=== PATIENT | female | born 1950 | race African-American/Black ===

== ENCOUNTER 2021-01-08 18:31 | Inpatient (IN) | payer MEDICARE, MEDICAID, SELFPAY ==
--- NOTE | ~2021-01-08 | CT_ITS ---
EXAMINATION: CT abdomen pelvis w con EXAM DATE: 01/11/2021 11:14 INDICATION: Renal cysts, mass. Abnormal ultrasound and noncontrast head CT. TECHNIQUE: Spiral CT of the abdomen and pelvis was performed following intravenous injection of 100 m L Omnipaque 350. Axial, coronal and sagittal images of the abdomen and pelvis were reviewed. The do se-length product (DLP) for this examination was 1558.53 mGy-cm. The exposure was tailored according to patient size (auto mA exposure control), and iterative reconstruction (ASIR) was used as addition al dose reduction technique. Comparison is made to prior examination from 01/10/2021. Correlation also made with ultrasound from 01/10. FINDINGS: There is enhancing right renal mass measuring 3.9 x 3.3 cm along the mid pole anterior kali ex, most likely renal cell cancer. There is also a left renal lobular region along the posterior infe rior aspect of this kidney which demonstrates robust enhancement, suspicious for renal cell cancer. T his region measures about 1 cm, is essentially isodense to the cortex, but did appear slightly hyperd ense to the cortex on the noncontrast study from 01/10. The liver, spleen, adrenal glands and pancreas are unremarkable. There are gallstones within an othe rwise unremarkable gallbladder. No evidence of obstructive biliary disease. Endometrium appears thi ckened, differential diagnosis including hyperplasia, carcinoma. The bladder is unremarkable. There is no retroperitoneal or pelvic lymphadenopathy. There is mild scattered arteriosclerotic disease. Small to moderate-sized umbilical Alfaro's hernia containing portion of transverse colon. Small to moderate-sized umbilical fat-containing hernia. The appendix is not positively visualized. There is no pericecal inflammatory change to suggest appe ndicitis. There is mild scattered colonic diverticulosis. There is no adjacent inflammatory change t o suggest diverticulitis. The stomach and small bowel are unremarkable. There is expected amount of colonic stool. No free intraperitoneal gas. Mild cardiomegaly. The lung bases are unremarkable. Mild to moderate dextroscoliosis and advanced lumbar spondylosis. Large thoracic bridging endplate o steophytes. IMPRESSION: 1. Right renal 3.9 cm mass most likely RCC. 2. Probable left renal 1 cm mass most likely RCC. 3. Endometrial thickening; correlate with recent pelvic sonogram. 4. Abdominal wall hernias, including supra umbilical Alfaro's hernia. 5. Colonic diverticulosis. 6. Cholelithiasis. Reviewed, dictated and finalized at location B.
--- NOTE | ~2021-01-08 | CT_ITS ---
EXAMINATION: CT abdomen pelvis wo con EXAM DATE: 01/10/2021 09:31 INDICATION: Post menopausal bleeding, abdominal pain . TECHNIQUE: Spiral CT of the abdomen and pelvis was performed without contrast. Axial, coronal and s agittal images of the abdomen and pelvis were reviewed. The dose-length product (DLP) for this exami nation was 1524.31 mGy-cm. The exposure was tailored according to patient size (auto mA exposure con trol), and iterative reconstruction (ASIR) was used as additional dose reduction technique. There is no prior study for comparison. FINDINGS: There is right renal 3.7 cm mass, hemorrhagic cyst versus renal cell cancer. There is 8mm l eft renal lesion also soft tissue density and same differential diagnosis. Contrast-enhanced CT or MR I examination abdomen recommended. If patient unable to have contrast, consider kidney ultrasound. Th e liver, spleen, adrenal glands and pancreas are unremarkable. There are gallstones within an otherw ise unremarkable gallbladder. No evidence of obstructive biliary disease. The uterus is unremarka ble. Difficult to evaluate on image from on this modality particularly without contrast. The bladder is unremarkable. There is no retroperitoneal or pelvic lymphadenopathy. Small umbilical fat-containing hernia. Small to moderate sized supraumbilical hernia containing both fat and antimesenteric portion of the transverse colon (Alfaro's hernia). No obstruction. Moderate a ortic arterial sclerosis. There are no findings to suggest appendicitis. The stomach and small bowel are unremarkable. There is expected amount of colonic stool. There is mild to moderate scattered colonic diverticulosis. The re is no adjacent inflammatory change to suggest diverticulitis. No free intraperitoneal gas. Card iomegaly. The lung bases are unremarkable. Severe lumbar disc disease and mild to moderate dextrosc oliosis. Lower thoracic diffuse idiopathic skeletal hyperostosis. Patient has diffuse idiopathic skel etal hyperostosis (DISH). IMPRESSION: 1. Bilateral renal indeterminate masses, hemorrhagic cysts versus renal cell cancers. If patient tien ble to have contrast enhanced CT or MR abdomen then recommend kidney ultrasound. 2. Small to moderate supraumbilical hernia Alfaro's hernia. 3. Colonic diverticulosis. 4. Cholelithiasis. Reviewed, dictated and finalized at location B. IMPRESSION: 1. Bilateral renal indeterminate masses, hemorrhagic cysts versus renal cell c ancers. If patient unable to have contrast enhanced CT or MR abdomen then recom mend kidney ultrasound. 2. Small to moderate supraumbilical hernia Alfaro's hernia. 3. Colonic diverticulosis. 4. Cholelithiasis.
--- NOTE | ~2021-01-08 | US_ITS ---
EXAMINATION: US pelvic complete w TV DATE: 01/09/2021 17:28 INDICATION: Status post menopausal bleeding TECHNIQUE: Multiple transabdominal and endovaginal sonographic images of the pelvis were obtained. COMPARISON: None. FINDINGS: The uterus measures 9.7 x 4.3 x 4.5 cm. The endometrial complex measures 12 mm in thickness. The rig ht and left ovaries were unable to be visualized.. There is no free fluid in the pelvis. IMPRESSION: 1. Thickened endometrial complex measuring 12 mm which could be related to clot, endometrial polyp, s ubmucosal fibroid, endometrial hyperplasia or endometrial carcinoma. Would recommend further evaluati on with hysteroscopy. Reviewed, dictated and finalized at location A. IMPRESSION: 1. Thickened endometrial complex measuring 12 mm which could be related to clot , endometrial polyp, submucosal fibroid, endometrial hyperplasia or endometrial carcinoma. Would recommend further evaluation with hysteroscopy.
--- NOTE | ~2021-01-08 | US_ITS ---
EXAMINATION:US venous doppler LE BI INDICATION:Leg swelling TECHNIQUE: Multiple grayscale, color flow and Doppler images of the right and left lower extremity de ep venous systems were obtained and reviewed. COMPARISON:No prior studies for comparison. FINDINGS: The common femoral, superficial femoral and popliteal veins demonstrate normal respiratory variation, augmentation and compressibility. Color flow is also seen within the posterior tibial, pe roneal, greater saphenous and profunda veins. IMPRESSION: 1: No lower extremity deep venous thrombosis. Reviewed, dictated and finalized at location A.
--- NOTE | ~2021-01-08 | XR_ITS ---
XR chest 2V DATE: 01/08/2021 19:52 INDICATION: Bilateral lower extremity swelling, intermittent shortness of breath for one week TECHNIQUE: AP and lateral views COMPARISON: 04/21/2016 2 view chest FINDINGS: Heart size is within normal range. There is mild aortic unfolding. There is pulmonary vascular redistribution, consistent with pulmonary venous hypertension. No pulmonary consolidation, pleural effusion or pneumothorax. Levoscoliosis and degenerative spurring of the thoracic spine. Osteopenia Synovial osteochondromatosis of right shoulder. Osteoarthritic change at the glenohumeral joints. IMPRESSION: Pulmonary vascular redistribution suggesting pulmonary venous hypertension, congestive ch mauricio Reviewed, dictated and finalized at location A. IMPRESSION: Pulmonary vascular redistribution suggesting pulmonary venous hyper tension, congestive change
--- NOTE | ~2021-01-08 | US_ITS ---
EXAMINATION: US renal BI EXAM DATE: 01/10/2021 13:36 INDICATION: CT abnormality. TECHNIQUE: Multiple grayscale and Doppler images of the kidneys were obtained (by a technologist who performed the scan) and subsequently reviewed. Correlation is made to CT abdomen pelvis earlier same date. FINDINGS: Some limitations from patient's body habitus. Right kidney: There is normal contour and echogenicity. It measures 9.9 x 4.0 x 5.7 centimeters. The re is hypoechoic lesion measuring about 3 cm with some increased through transmission. Appearance is most consistent with a cyst, likely proteinaceous given density on recent CT. There is no hydroneph rosis. Left kidney: There is normal contour and echogenicity. It measures 9.0 x 4.9 x 4.7 centimeters. Ther e is a 1 cm cyst within the left kidney, which is centrally positioned and not the same lesion seen o n CT. There is no hydronephrosis. Bladder unremarkable. IMPRESSION: 1. Renal lesions, could be cyst but difficult to confirm due to limitations. 2. No hydronephrosis. Reviewed, dictated and finalized at location B.
[2021-01-08 19:23] VITALS: BP 167/74; PULSE 93; RESP 18; TEMP 37.2; O2SAT 98
--- NOTE | 2021-01-08 19:24 | ECG_ITS ---
Measurements Intervals [place] Rate: 98 P: 62 NM: 167 QRS: 55 QRSD: 86 T: 188 QT: 349 QTc: 447 Interpretive Statements SINUS RHYTHM POSSIBLE LEFT ATRIAL ENLARGEMENT ST-T WAVE ABNORMALITY IN ANTEROLAT/INF LEADS- CONSIDER ISCHEMIA ABNORMAL ECG Electronically Signed On 01-09-2021 6:00:08 CDT by Sandip Yap D.O.
[2021-01-08 20:14] VITALS: BP 181/93; PULSE 94; RESP 20; O2SAT 97
--- NOTE | 2021-01-08 20:51 | ED.GENADULT ---
HPI - General Adult General Chief complaint: Extremity Problem,Nontraumatic Stated complaint: bilateral le edema Time Seen by Provider: 01/08/21 19:44 History of Present Illness HPI narrative: Patient is a 70-year-old female who presents the emergency department with chief complaint of shortness of breath and lower extremity edema patient reports that she has noticed that her legs have been swelling up for some time and now is getting short of breath to the point that she has to sleep in a recliner patient states whenever she ambulates she gets more short of breath denies any episodes of PND the patient states that also over the last several weeks to months she has started having vaginal bleeding again reports that her onset of menopause was around age 51 and now she has had episodes where she has heavy vaginal bleeding usually for about 1 day at a time patient reports she has an appointment scheduled with [facility] tomorrow to evaluate this patient states that she feels cold all the time even whenever the temperatures are hot outside reports that she has generalized weakness. Patient reports no prior history of anemia or no prior history of heart failure denies chest pain. Related Data Allergies Allergy/AdvReac Type Severity Reaction Status Date / Time No Known Allergies Allergy Unverified 04/21/16 18:37 Review of Systems Review of Systems: A 10 system review of systems was completed on the patient and is negative except for what is stated in the HPI. Nursing and ancillary documentation was reviewed. [facility] Family History Family History Other Family history of heart disease in male family member before age 55 Social History Social History Smoking status: Never smoker Alcohol intake: current Exam Narrative: GENERAL: Well-appearing, well-nourished, and in no acute distress. HEAD: Normocephalic, atraumatic. EYES: PERRLA and EOMI. ENT: Nares clear, no rhinorrhea or epistaxis. Mucous membranes moist. NECK: Supple. CHEST: Clear to auscultation. No respiratory distress. HEART: Regular rate and rhythm. No murmur heard. Normal peripheral pulses. ABDOMEN: Soft, nontender, nondistended, normal active bowel sounds. EXTREMITIES: Normal range of motion. 2+ edema. SKIN: Warm, dry, no rash. NEURO: No focal deficits. Alert and oriented x3. PSYCH: Normal mood and affect. Course Vital Signs Vital signs: Vital Signs Temperature 37.2 C 01/08/21 19:23 Pulse Rate 93 01/08/21 19:23 Respiratory Rate 18 01/08/21 19:23 Blood Pressure 167/74 H 01/08/21 19:23 Pulse Oximetry 98 01/08/21 19:23 Temperature 37.2 C 01/08/21 19:23 Pulse Rate 94 01/08/21 20:14 Respiratory Rate 01/08/21 20:14 Blood Pressure 181/93 H 01/08/21 20:14 Pulse Oximetry 97 01/08/21 20:14 Medical Decision Making Vital Signs Vital Signs: Vital Signs Temperature 37.2 C 01/08/21 19:23 Pulse Rate 93 01/08/21 19:23 Respiratory Rate 18 01/08/21 19:23 Blood Pressure 167/74 H 01/08/21 19:23 Pulse Oximetry 98 01/08/21 19:23 Temperature 37.2 C 01/08/21 19:23 Pulse Rate 94 01/08/21 20:14 Respiratory Rate 01/08/21 20:14 Blood Pressure 181/93 H 01/08/21 20:14 Pulse Oximetry 97 01/08/21 20:14
[2021-01-08 22:05] LABS: Basophils Percent Auto 0.4 % (0.2-1.2); Eosinophils Absolute Auto 0.4 K/mm3 (0-0.3); Eosinophils Percent Auto 3.7 % (0-4.4); Hemoglobin 11.3 g/dL (12.0-15.0); Immature Granulocyte Absolute 0.03 K/mm3 (0.00-0.031); Immature Granulocyte Percent A 0.3 % (0-0.5); Lymphocytes Absolute Auto 1.76 K/mm3 (0.9-3.2); Lymphocytes Percent Auto 17.8 % (18.3-44.2); Mean Corpuscular HGB Conc 31.4 g/dl (32-36); Mean Corpuscular Hemoglobin 30.5 pg (26-34); Mean Platelet Volume 11.4 fl (7.4-10.4); Monocytes Absolute Auto 0.5 K/mm3 (0.1-0.6); Monocytes Percent Auto 5.1 % (2.6-8.5); Neutrophils Absolute Auto 7.2 K/mm3 (1.3-6.7); Neutrophils Percent Auto 72.7 % (45.5-73.1); Platelet Count Result 248 k/mm3 (150-375); Red Blood Count 3.71 M/mm3 (4.2-5.4); Red Cell Distribution Width 15.9 % (11.5-14.5); White Blood Count 9.9 K/mm3 (4.5-10.0)
[2021-01-08 22:15] LABS: INR 1.2; Prothrombin Time 14.7 Seconds (11.1-14.7)
[2021-01-08 22:17] LABS: Partial Thromboplastin Time 27.8 SECONDS (22.3-36.8)
[2021-01-08 22:19] LABS: Alanine Aminotransferase 14 U/L (4-35); Albumin Level 4.1 g/dL (3.5-5.1); Alkaline Phosphatase 114 U/L (38-126); Aspartate Amino Transferase 27 U/L (14-36); Bilirubin,Total 0.3 mg/dL (0.2-1.3)
[2021-01-08 22:20] LABS: Anion Gap 6 mmol/L (8-16); Blood Urea Nitrogen 24 mg/dL (7-17); Carbon Dioxide 30 mmol/L (22-30); Chloride 105 mmol/L (98-107); Estimated CRCL calculation 53 ml/min; Estimated Glomerular Filt Rate 49; Glucose 130 mg/dL (65-110); Potassium 3.3 mmol/L (3.4-5.0); Sodium 141 mmol/L (137-145)
[2021-01-08 22:38] LABS: NT Pro B Type Natriuretic Pept 204 pg/mL (5-100); Troponin I 0.045 ng/mL (0.000-0.034)
[2021-01-08 23:23] VITALS: BP 175/85; PULSE 88; RESP 20; O2SAT 98
--- NOTE | 2021-01-08 23:46 | PM.IMHP ---
H&P: HPI History of Present Illness Date/Time: 01/08/21 23:46 Chief Complaint: Shortness of breath Narrative: This is a 70-year-old female with non significant past medical history that was brought to the emergency room by her granddaughter due to the patient's worsening bilateral lower extremity wound edema and shortness of breath also having vaginal bleed. Patient denies any chest pain ,PND or orthopnea, no syncope or near syncope no nausea, no vomiting, no diarrhea, no abdominal pain, no fevers ,no rigors ,no chills. Most of the history has been obtained by her granddaughter diet is sitting at bedside patient wants to go home. Patient was supposed to be seen by Imaging Aide this week but instead came to the hospital. Preliminary workup was significant for a creatinine now 1.3, and elevated troponin, a chest x-ray shows congestion. Decision has been made to place the patient in observation for further management and evaluation. Review of Systems Review of Systems: Shortness of breath bilateral lower extremity swelling vaginal bleed Constitutional: Constitutional: Denies chills, Denies fatigue, Denies fever(s), Denies lethargy, Denies malaise and Denies weakness Eyes: Eyes: Denies change in vision ENT: Denies dysphagia, Denies nasal congestion, Denies nasal discharge, Denies nasal obstruction and Denies odynophagia Cardiovascular: Cardiovascular: Denies chest pain, Denies irregular heart rhythm, Reports leg edema, Denies radiating jaw, neck or arm pain, Denies palpitations and Reports dyspnea on exertion Respiratory: Respiratory: Denies change in phlegm color, Reports cough and Denies excessive phlegm production Gastrointestinal: Gastrointestinal: Denies abdominal pain, Denies diarrhea, Denies nausea and Denies vomiting Genitourinary: Comments: Vaginal bleed Musculoskeletal: Musculoskeletal: Reports no additional musculoskeletal complaints Integumentary/Breasts: Skin/Breast: Reports system reviewed and no additional complaints, except as docu Neurologic: Reports system reviewed and no additional complaints, except as documented Psychiatric: Psychiatric: Reports no additional psychiatric complaints Endocrine: Endocrine: Reports no additional endocrine complaints Hematologic/Lymphatic: Hematologic/Lymphatic: Reports no additional hematologic/lymphatic complaints Allergic/Immunologic: Allergic/Immunologic: Reports no additional allergic/immunologic complaints [facility] Family History Family History Other Family history of heart disease in male family member before age 55 Social History Social History Smoking status: Never smoker Alcohol intake: current Meds Home Medications and Allergies Home Medications Medication Instructions Recorded Confirmed Type No Home Medications 01/09/21 01/09/21 History Allergies Allergy/AdvReac Type Severity Reaction Status Date / Time No Known Allergies Allergy Unverified 04/21/16 18:37 Vital Signs Vital Signs - 24 hr 01/08/21 19:23 01/08/21 20:14 01/08/21 23:23 Temperature 98.9 F Pulse Rate 93 94 88 Respiratory Rate 18 20 20 Blood Pressure 167/74 H 181/93 H 175/85 H Pulse Oximetry 98 97 98 Exam Narrative: Patient is sitting in wheelchair Const: General: cooperative, comfortable, no acute distress, well developed, alert, awake and other (Well-appearing) Nutritional Appearance: average body habitus and obese morbidly obese Orientation/consciousness: patient oriented x3 HENMT: Head: normal to inspection, normocephalic and atraumatic Ears: hearing grossly normal bilaterally General nose exam: Normal external nose present Face and sinus: normal facial exam Mouth: Yes Normal oral and palatal mucosa present Eyes: General: appearance normal, both eyes and all related structures Alignment and Position: alignment normal Sclera: sclerae normal
[2021-01-08] MEDS: FUROSEMIDE INJ 40 MG/4 ML VIAL 20 MG IV PUSH (23:57)
[2021-01-09] VITALS (12 sets, daily range): BP systolic 145–166; BP diastolic 76–110; PULSE 68–95; RESP 12–20; TEMP 36.1–37.1; O2SAT 97–100; BMI 46.8
--- NOTE | 2021-01-09 01:35 | ADMGEN ---
This patient, Roxanne Garcia, was admitted to IMU Room 210-01. Patient/family oriented to hospital policies and general routines including ID bracelet, bed and alarms, visiting hours, pain management, procedures, bathroom and other care routines, personal items, smoking policy, room service/diet, and visiting hours. Information on how to activate the Rapid Response Team has been discussed. Patient/Family are encouraged to report perceived risks to care and to ask questions if they do not understand what they are told or what they should do.
--- NOTE | 2021-01-09 03:19 | PC.NURSE ---
Dr. Alberto Notified of patient receiving lasix in ER and potassium is 3.3 with no replacement. Give 40potassium PO
[2021-01-09 03:45] LABS: Troponin I 0.042 ng/mL (0.000-0.034)
[2021-01-09 03:52] LABS: Add Urine Microscopic? YES; Appearance Urine Clear (Clear); Bilirubin Urine Negative (Negative); Blood Urine 2+ (Negative); Color Urine Colorless (Yellow); Glucose Urine UA Negative (Negative); Ketones Urine Negative (Negative); Leukocyte Esterase Ur Negative LEU/UL (Negative); Mucus Urine Rare /lpf; Nitrate Urine Negative (Negative); Protein Urine Negative (Negative); Specific Grav Ur 1.008 (1.001-1.035); Squamous Epithelial Cell Urine Rare /hpf (Few); Urobilinogen Urine Negative mg/dL (<2.0); WBC Urine 0-3 /hpf
[2021-01-09] MEDS: POTASSIUM CHLORIDE 20 MEQ TABLET 40 MEQ PO ×2 (03:59→09:32)
--- NOTE | 2021-01-09 06:00 | ECHO_ITS ---
Patient Info Name: Roxanne Garcia Age: 70 years : 1950 Gender: Female Ht: 67 in Wt: 300 lbs BSA: 2.61 m2 HR: 91 bpm BP: 149 / 82 mmHg Heart Rhythm: Sinus Rhythm Exam Date: 01/09/2021 8:35 AM Exam Location: [facility] Patient Status: Outpatient Admit Date: 01/08/2021 Staff Ordering Physician: Darek Paez MD Nutrition Director: Hossein Robertson, KODI, RT Attending Provider: Cindy Rain PA-C Referring Physician: Jeannine PEARSON; Exam Type: CA echo doppler color flow Study Info Indications R60.0 - Localized edema Complete two-dimensional, color flow and Doppler transthoracic echocardiogram is performed. Summary 1. Complete two-dimensional, color flow and Doppler transthoracic echocardiogram is performed. 2. Technically difficult study with limited views. Regional wall motion assessment limited due to poor endomyocardial border definition. 3. Left ventricular systolic function is normal, estimated at 65-70%. 4. There is mildly increased left ventricular wall thickness. 5. The left ventricular diastolic function is grade I diastolic dysfunction. 6. Left atrial chamber dimension is upper limits of normal. 7. Right atrial chamber dimension is normal. 8. There is no aortic valve stenosis. 9. Unable to estimate PA systolic pressure due to poor spectral resolution of tricuspid regurgitant jet velocity. 10. There is trace tricuspid valve regurgitation. 11. There is small pericardial effusion. Left Ventricle Left ventricular chamber dimension is normal. Left ventricular systolic function is normal, estimated at 65-70%. There is mildly increased left ventricular wall thickness. The left ventricular diastolic function is grade I diastolic dysfunction. Technically difficult study with limited views. Regional wall motion assessment limited due to poor endomyocardial border definition. Right Ventricle Right ventricular chamber dimension is normal. Right ventricular systolic function is normal. Left Atria Left atrial chamber dimension is upper limits of normal. Right Atria Right atrial chamber dimension is normal. Aortic Valve The aortic valve is not well visualized. There is mild aortic valve sclerosis. There is no aortic valve stenosis. There is no aortic valve regurgitation. Pulmonic Valve The pulmonic valve is not well visualized. Mitral Valve The mitral valve has not well visualized. There is trace mitral valve regurgitation. The mitral valve annulus is mildly calcified. Tricuspid Valve The tricuspid valve leaflets are not well visualized. There is trace tricuspid valve regurgitation. Unable to estimate PA systolic pressure due to poor spectral resolution of tricuspid regurgitant jet velocity. Pericardium/Pleural The pericardium appears normal. There is small pericardial effusion. Inferior Vena Cava Normal inferior vena cava with <50% collapse upon inspiration consistent with elevated right atrial pressure, 10 mmHg. Aorta The aortic root size at the sinus of Valsalva is normal. There is mild aortic atherosclerosis. Left Ventricular Outflow Tract Name Value Normal LVOT 2D LVOT Diameter 2.0 cm LVOT Doppler
[2021-01-09 07:33] LABS: Magnesium 1.8 mg/dL (1.6-2.3); Potassium 3.3 mmol/L (3.4-5.0)
[2021-01-09] MEDS: FUROSEMIDE INJ 40 MG/4 ML VIAL 20 MG IV PUSH ×2 (09:32→23:00)
--- NOTE | 2021-01-09 09:49 | ECG_ITS ---
Measurements Intervals [place] Rate: 88 P: 49 OR: 153 QRS: 35 QRSD: 85 T: -11 QT: 369 QTc: 449 Interpretive Statements SINUS RHYTHM BORDERLINE T WAVE ABNORMALITY- INFERIOR LEADS BASELINE ARTIFACT- I, II, AVR BORDERLINE ECG Electronically Signed On 01-09-2021 13:57:31 CDT by Sandip Yap D.O.
--- NOTE | 2021-01-09 10:02 | PM.CNCAR ---
Assessment and Plan Assessment and plan (1) Elevated troponin I level: Code(s): R77.8 - Other specified abnormalities of plasma proteins Status: Acute Assessment and Plan: Type 2 infarction in setting of renal insufficiency, uncontrolled hypertension, possible mild but without anginal symptoms and flat curve not consistent with the acute coronary syndrome and/or plaque rupture. Abnormal EKG cannot exclude underlying CAD, however,. 2D echocardiogram pending. Recommendations after review. Check TSH, hemoglobin A1c, repeat 12 lead EKG. Discussed many options with the patient with regards to etiology renal insufficiency, edema and shortness of breath. We discussed the significant LV dysfunction, valve pathology or wall motion abnormality identified on echocardiogram further ischemic workup indicated at the appropriate time. Patient verbalized understanding. DVT prophylaxis Check lipid panel Telemetry for now Apnea link to screen for sleep apnea Aspirin 81 mg daily Recommendations to follow. (2) Congestive heart failure: Code(s): I50.9 - Heart failure, unspecified Status: Acute Assessment and Plan: Presentation suggests CHF with progressive exertional dyspnea, lower extremity edema when difficulty sleeping suggestive but not corroborated by the patient of orthopnea but within minimal elevation in BNP as well as minimal pulmonary vascular congestion on chest x-ray. Continue IV Lasix, accurate input and output, daily weight, low-sodium diet. Check TSH Apnea link (3) Acute renal insufficiency: Code(s): N28.9 - Disorder of kidney and ureter, unspecified Status: Acute Assessment and Plan: Creatinine 0.7 in 2018. Or recent chronicity at this time unknown. Monitor tolerance with diuretic therapy. Replete electrolytes, she remains hypokalemic. (4) Hypertension: Code(s): I10 - Essential (primary) hypertension Status: Acute Assessment and Plan: BP poorly controlled. ARB as renal function tolerates. We discussed if sleep apnea present can contribute to difficulty managing blood pressure, increased exacerbation risk for CHF as well as multiple other complications not to mention significant impact in quality of life.. (5) Morbid obesity with BMI of 45.0-49.9, adult: Code(s): E66.01 - Morbid (severe) obesity due to excess calories; Z68.42 - Body mass index [BMI] 45.0-49.9, adult Status: Acute Assessment and Plan: Lifestyle modification, exercise, reduction in caloric intake counseling performed. Check apnea link given symptoms highly suggestive of LUIS F. (6) Vaginal bleeding: Code(s): N93.9 - Abnormal uterine and vaginal bleeding, unspecified Status: Acute Assessment and Plan: Per primary service. History of Present Illness History of Present Illness Consult date/time: Date of service: 01/09/21 10:02 Cardiology consultation at the request of Dr. Alberto of the [facility] service for opinion regarding elevated troponin Requesting physician: Flori Alberto MD Consult reason: shortness of breath and Other (Elevated troponin) Reason For Visit: Shortness of Breath, Peripheral Edema Narrative: Patient is a 70-year-old AAF with past medical history significant for hypertension who was brought in by her granddaughter with complaints of worsening lower extremity edema and exertional dyspnea. Patient states her edema was worse eaten leg for the past week and relates 2 weeks of progressive exertional dyspnea. She denies chest pain, dizziness or lightheadedness. No palpitations, fevers, chills or recent sick contacts. She denies any dysuria or hematuria. She states she is feeling better and her swelling has improved. She admits that she does not see her primary care doctor regularly unless she is made to come in to get refills on her medications which she states she takes faithfully. She indicates she takes triamterene with another
[2021-01-09 10:15] LABS: Troponin I 0.044 ng/mL (0.000-0.034)
--- NOTE | 2021-01-09 12:58 | PM.IMPN ---
Progress Note: A&P Assessment and Plan (1) Congestive heart failure: Code(s): I50.9 - Heart failure, unspecified Status: Acute Assessment and Plan: Suspect CHF with her lower extremity edema and dyspnea on exertion but BMP not as elevated as one would expect -troponins flat, no chest pain. No signs of ACS -echo pending -continue Lasix 20 mg IV push twice a day -agree with apnea link overnight -differential diagnosis for leg swelling include DVT although less likely since the patient is somewhat active and her legs are swollen bilaterally. No history of clot. There is no protein noted in her UA, nephropathy not suspected. (2) Elevated troponin I level: Code(s): R77.8 - Other specified abnormalities of plasma proteins Status: Acute Assessment and Plan: As above -echo pending (3) Hypertension: Code(s): I10 - Essential (primary) hypertension Status: Acute Assessment and Plan: Last blood pressure 164/76 -she does not take anything at home for this -will await echo results before starting antihypertensives. If no CHF consider starting amlodipine. -for now continue hydralazine as needed (4) Morbid obesity with BMI of 45.0-49.9, adult: Code(s): E66.01 - Morbid (severe) obesity due to excess calories; Z68.42 - Body mass index [BMI] 45.0-49.9, adult Status: Acute Assessment and Plan: Chronic, encourage healthy lifestyles (5) Vaginal bleeding: Code(s): N93.9 - Abnormal uterine and vaginal bleeding, unspecified Status: Acute Assessment and Plan: Will order transvaginal ultrasound. Patient did have an appointment outpatient today. She says this happens once a year and is very minimal. Still concerning since she is postmenopausal. (6) Acute renal insufficiency: Code(s): N28.9 - Disorder of kidney and ureter, unspecified Status: Acute Assessment and Plan: Creatinine slightly elevated 1.3. Will monitor with daily labs especially since she is on Lasix. No signs of infection on UA. Could be due to untreated hypertension. Labs back in 2012 shows a normal creatinine Time Spent With Patient Time with patient: 25 - 35 minutes Subjective Date/time seen: 01/09/21 12:58 Interval history: Pt is a 70-year-old female here for lower extremity swelling. Patient was seen today and states the swelling is a bit better. She states that this just happened within the last week but her dyspnea on exertion has been going on since the beginning of this year. She has no orthopnea or problems breathing at rest. No chest pain at this time. She states that she had a little bit of postmenopausal bleeding yesterday. She said it was a bright red blood but not very much. She says she has this about once a year. She had an appointment today to see an OBGYN about this. It has cleared up. No history of blood clots or kidney disease. Review of Systems Review of Systems: All systems reviewed & are unremarkable except as noted in HPI and below Exam Narrative: General: Well developed well nourished patient in NAD HEENT: normocephalic Neck: supple Neuro: Alert and oriented x4 CV:RRR. Telemetry without abnormal reviews Resp:CTA, slightly decreased breath sounds throughout Abd: Soft, non distended. No pain to palpation. Positive bowel sounds Extremities: 2+ pitting edema up to the knees bilaterally. No erythema or warmth. Sensation intact no pain. Objective Data Vital Signs Vital Signs: Vital Signs - 24 hr 01/08/21 19:23 01/08/21 20:14 01/08/21 23:23 Temperature 98.9 F Pulse Rate 93 94 88 Respiratory Rate 18 20 20 Blood Pressure 167/74 H 181/93 H 175/85 H Pulse Oximetry 98 97 98 01/09/21 01:35 01/09/21 03:37 01/09/21 06:00 Temperature 98.8 F 98.7 F Pulse Rate 93 84 76 Respiratory Rate 20 20 Blood Pressure 162/101 H 149/82 H Pulse Oximetry 100 97 01/09/21 08:00 01/09/21 10:00 Tem
--- NOTE | 2021-01-09 15:17 | WPDCN ---
Assessment and Plan Assessment and plan (1) Postmenopausal bleeding: Code(s): N95.0 - Postmenopausal bleeding Status: Acute Assessment and Plan: Check pelvic ultrasound (already ordered). I advised her if the uterine lining is thickened, she will need sampling of the endometrial cavity either in office or in the OR (as outpatient). We discussed that vaginal bleeding after menopause is not normal and should be reported to her propellant charge zone assembler. She had visit scheduled with a propellant charge zone assembler today but does not remember his/her name. HPI Data of Consult Date/Time: 01/09/21 15:17 Requesting Physician: Cindy Rain PA-C Primary Care Provider: UNKNOWN,DOCTOR Consult Narrative Narrative: Roxanne Garcia is a 70 year old female postmenopausal who had light vaginal bleeding yesterday and cramping similar to menstrual cramps. Bleeding has stopped. She reports having had vaginal bleeding about a year ago but denies having endometrial biopsy or D&C. She is not sexually active. No pelvic or abdominal pain today. No h/o abnormal paps Review of Systems Review of Systems: All systems reviewed & are unremarkable except as noted in HPI and below PMFSH Past Medical History Medical History Hypertension Morbid obesity with BMI of 45.0-49.9, adult Family History Family History Other Family history of heart disease in male family member before age 55 Social History Social History Smoking status: Never smoker Alcohol intake: never Substance use: never Spiritual care concerns: No Meds Home Medications and Allergies Home Medications Medication Instructions Recorded Confirmed Type No Home Medications 01/09/21 01/09/21 History Allergies Allergy/AdvReac Type Severity Reaction Status Date / Time No Known Allergies Allergy Unverified 04/21/16 18:37 Vital Signs Vital Signs - 24 hr 01/08/21 19:23 01/08/21 20:14 01/08/21 23:23 Temperature 37.2 C Pulse Rate 93 94 88 Respiratory Rate 18 20 20 Blood Pressure 167/74 H 181/93 H 175/85 H Pulse Oximetry 98 97 98 01/09/21 01:35 01/09/21 03:37 01/09/21 06:00 Temperature 37.1 C 37.1 C Pulse Rate 93 84 76 Respiratory Rate 20 20 Blood Pressure 162/101 H 149/82 H Pulse Oximetry 100 97 01/09/21 08:00 01/09/21 10:00 01/09/21 12:00 Temperature 36.6 C 36.9 C Pulse Rate 78 89 88 Respiratory Rate 18 18 Blood Pressure 164/76 H 159/110 H Pulse Oximetry 99 98 Exam Const: General: cooperative, no acute distress, alert and awake Resp: Auscultation: clear to auscultation bilaterally Cardio: Rate: regular rate Rhythm: regular rhythm GI: Inspection: non-distended GI Palp: Yes Soft to palpation and No Tenderness to palpation present (GI) : General: Yes deferred Psych: Mental Status: mental status grossly normal Results Labs CBC & Chem 7: 01/08/21 20:20 01/09/21 05:45 Labs: Short CBC 01/08/21 Range/Units 20:20 WBC 9.9 (4.5-10.0) K/mm3 Hgb 11.3 L (12.0-15.0) g/dL Hct 36.0 L (37.0-47.0) % Plt Count 248 (150-375) k/mm3 [facility] 01/08/21 01/09/21 20:20 05:45 Sodium 141 Potassium 3.3 L 3.3 L Chloride 105 Carbon Dioxide 30 BUN 24 H Creatinine 1.30 H Glucose 130 H Calcium 9.0 Cardiac Enzymes 01/08/21 01/09/21 01/09/21 Range/Units 20:20 02:46 05:48 Troponin I 0.045 H* 0.042 H* 0.050 H* (0.000-0.034) ng/mL 01/09/21 Range/Units 09:29 Troponin I 0.044 H* (0.000-0.034) ng/mL Liver Function 01/08/21 Range/Units 20:20 Total Bilirubin 0.3 (0.2-1.3) mg/dL Direct Bilirubin 0.0 (0-0.3) mg/dL AST 27 (14-36) U/L ALT 14 (4-35) U/L Alkaline Phosphatase 114 (38-126) U/L Albumin 4.1 (3.5-5.1) g/dL Urine 01/09/21 Range/Units
--- NOTE | 2021-01-09 17:33 | PC.NURSE ---
This patient, Roxanne Garcia, was transferred to [facility] on 01/09/21 at 1720. Personal belongings sent with patient. Report given to Salma HE. Appropriate documentation sent with patient.
--- NOTE | 2021-01-09 17:57 | PC.NURSE ---
Arrived from [facility] at 1720, no c/o
[2021-01-09] MEDS: hydrALAZINE HCL 20 MG/ML VIAL 10 MG IV PUSH (23:43)
[2021-01-10] VITALS (7 sets, daily range): BP systolic 93–151; BP diastolic 54–92; PULSE 70–100; RESP 18–20; TEMP 36.3–36.7; O2SAT 98–100
[2021-01-10] MEDS: ACETAMINOPHEN 500 MG TABLET 1000 MG PO (04:27)
[2021-01-10 06:23] LABS: Hematocrit 32.1 % (37.0-47.0); Hemoglobin 10.5 g/dL (12.0-15.0); Mean Corpuscular HGB Conc 32.7 g/dl (32-36); Mean Corpuscular Hemoglobin 30.1 pg (26-34); Mean Platelet Volume 11.4 fl (7.4-10.4); Platelet Count Result 227 k/mm3 (150-375); Red Blood Count 3.49 M/mm3 (4.2-5.4); Red Cell Distribution Width 15.2 % (11.5-14.5); White Blood Count 8.6 K/mm3 (4.5-10.0)
[2021-01-10 06:31] LABS: Anion Gap 8 mmol/L (8-16); Blood Urea Nitrogen 27 mg/dL (7-17); Calcium 8.8 mg/dL (8.4-10.2); Carbon Dioxide 30 mmol/L (22-30); Chloride 102 mmol/L (98-107); Cholesterol 195 mg/dL (0-200); Estimated CRCL calculation 58 ml/min; Estimated Glomerular Filt Rate 54; Glucose 123 mg/dL (65-110); HDL Direct 34 mg/dL; Magnesium 1.8 mg/dL (1.6-2.3); Potassium 3.5 mmol/L (3.4-5.0); Sodium 140 mmol/L (137-145); Triglycerides 91 mg/dL (<150)
[2021-01-10 06:42] LABS: LDL Cholesterol Direct 123 mg/dL
[2021-01-10] MEDS: POTASSIUM CHLORIDE 20 MEQ TABLET PO (09:00)
[2021-01-10] MEDS: amLODIPine BESYLATE 5 MG TABLET PO (09:00)
[2021-01-10] MEDS: ASPIRIN 81 MG ENTERIC TABLET PO (09:01)
[2021-01-10] MEDS: FUROSEMIDE INJ 40 MG/4 ML VIAL 20 MG IV PUSH ×2 (09:01→22:36)
--- NOTE | 2021-01-10 11:14 | PM.IMPN ---
Progress Note: A&P Assessment and Plan (1) Congestive heart failure: Code(s): I50.9 - Heart failure, unspecified Status: Acute Assessment and Plan: Acute diastolic CHF -troponins flat, no chest pain. No signs of ACS -echo noted -continue Lasix 20 mg IV push twice a day, continue with that -untreated sleep apnea is also in etiology. Her lower extremity swelling is likely multifactorial and includes untreated sleep apnea and diastolic heart failure. She plans follow-up with her primary care physician for sleep apnea study -There is no protein noted in her UA, nephropathy not suspected. Ultrasound lower extremity showed no DVTs. No signs of inferior vena cava compression on CT. (2) Elevated troponin I level: Code(s): R77.8 - Other specified abnormalities of plasma proteins Status: Acute Assessment and Plan: As above (3) Hypertension: Code(s): I10 - Essential (primary) hypertension Status: Acute Assessment and Plan: Last blood pressure 151/92 -she does not take anything at home for this -Norvasc as these do improve blood pressures in Americans more efficacious sleep. She would also likely benefit from Edgar/Arb to prevent remodeling but will defer to Cardiology (4) Morbid obesity with BMI of 45.0-49.9, adult: Code(s): E66.01 - Morbid (severe) obesity due to excess calories; Z68.42 - Body mass index [BMI] 45.0-49.9, adult Status: Acute Assessment and Plan: Chronic, encourage healthy lifestyles (5) Vaginal bleeding: Code(s): N93.9 - Abnormal uterine and vaginal bleeding, unspecified Status: Acute Assessment and Plan: Transvaginal ultrasound shows a suspicious abnormality and she should get a biopsy outpatient (6) Acute renal insufficiency: Code(s): N28.9 - Disorder of kidney and ureter, unspecified Status: Acute Assessment and Plan: Creatinine slightly elevated 1.2 Will monitor with daily labs especially since she is on Lasix. No signs of infection on UA. Could be due to untreated hypertension. Labs back in 2012 shows a normal creatinine (7) Renal mass: Code(s): N28.89 - Other specified disorders of kidney and ureter Status: Acute Assessment and Plan: CT shows bilateral renal masses which could be hemorrhagic cyst or renal cell cancers. I spoke to the patient about further workup and she does not really want to do the MRI or CT with contrast unless she really has 2. She would like to try the ultrasound 1st. This has been ordered (8) Suspected sleep apnea: Code(s): R29.818 - Other symptoms and signs involving the nervous system Status: Acute Assessment and Plan: Will need official sleep study outpatient, could be contributing to her lower extremity edema Subjective Date/time seen: 01/10/21 11:14 Interval history: Pt is a 70-year-old female here for lower extremity swelling. Patient was seen today and states her swelling is little bit better. She has no further complaints. She states she has no history of sleep apnea and has never been tested. I spoke with her about her abnormality on the abdominal pelvis CT. She said she could agreed to an MRI of the absolutely had to but would like to try the ultrasound 1st. She has never had contrast and she does not do well with in closed spaces. I spoke with her about her blood pressure in the plan of care for that. She has never been on amlodipine. Exam Narrative: General: Well developed well nourished patient in NAD HEENT: normocephalic Neck: supple Neuro: Alert and oriented x4 CV:RRR. Telemetry without abnormal reviews Resp:CTA, slightly decreased breath sounds throughout Abd: Soft, non distended. No pain to palpation. Positive bowel sounds Extremities: 1+ pitting edema up to the mid crandall bilaterally--improved. No erythema or warmth. Sensation intact no pain. Objecti
--- NOTE | 2021-01-10 14:06 | PM.PNCARD ---
Progress Note: A&P Assessment and Plan (1) Elevated troponin I level: Code(s): R77.8 - Other specified abnormalities of plasma proteins Status: Acute Assessment and Plan: Type 2 infarction in setting of renal insufficiency, uncontrolled hypertension, possible mild but without anginal symptoms and flat curve not consistent with the acute coronary syndrome and/or plaque rupture. Abnormal EKG at presentation cannot exclude underlying CAD. Echo technically difficult but preserved LV systolic function without clearly identifiable motion abnormalities or significant valve pathology. Mild LVH with grade 1 diastolic dysfunction appreciated. BP control, treatment of LUIS F, diet/lifestyle avoidance of NSAID therapy counseling performed. Losartan would be preferable for blood pressure control if she still requires. Discontinued IV hydralazine. Continue Lasix, transition to oral DVT prophylaxis Telemetry stable. Apnea link suggests severe LUIS F AHI 38. Outpatient sleep study strongly advised. Aspirin 81 mg daily Will schedule for outpatient Lexiscan nuclear stress test to assess for myocardial ischemia. Offered inpatient ischemic evaluation prior to discharge which patient respectfully declined. Patient is not reporting anginal symptoms. Repeat 12 lead EKG much improved. Patient verbalized understanding of the record recommendations and agreed to comply with plan of care. Recommend initiation of atorvastatin 20 mg at bedtime. (2) Congestive heart failure: Code(s): I50.9 - Heart failure, unspecified Status: Acute Assessment and Plan: Presentation suggests CHF with progressive exertional dyspnea, lower extremity edema when difficulty sleeping suggestive but not corroborated by the patient of orthopnea but within minimal elevation in BNP as well as minimal pulmonary vascular congestion on chest x-ray. Transition to oral Lasix in a.m. as tolerated. Combination of uncontrolled hypertension, untreated significant LUIS F. Counseled on risks associated with NSAID use including hypertension, CHF. She understands and agrees. -1.8L (3) Acute renal insufficiency: Code(s): N28.9 - Disorder of kidney and ureter, unspecified Status: Acute Assessment and Plan: Creatinine stable 1.2, BUN slightly elevated 27. Monitor electrolytes, supplement 20 mEq potassium chloride daily. Check electrolytes in a.m.. Renal mass workup per primary service. Ultrasound suggestive of cyst. (4) Hypertension: Code(s): I10 - Essential (primary) hypertension Status: Acute Assessment and Plan: BP marginally controlled improved on amlodipine. Hypotensive after IV hydralazine so I discontinued this. Again, ARB as renal function tolerates. . (5) Morbid obesity with BMI of 45.0-49.9, adult: Code(s): E66.01 - Morbid (severe) obesity due to excess calories; Z68.42 - Body mass index [BMI] 45.0-49.9, adult Status: Acute Assessment and Plan: Lifestyle modification, exercise, reduction in caloric intake counseling performed. (6) Vaginal bleeding: Code(s): N93.9 - Abnormal uterine and vaginal bleeding, unspecified Status: Acute Assessment and Plan: Per primary service. Ob consult noted. Subjective Date/time seen: Date of service: 01/10/21 14:07 Follow-up for elevated troponin, shortness of breath lower extremity edema She states she feels better overall. She remains tired as she is not sleeping well. Denies chest pain or significant shortness of breath. States she feels her edema is improving. No dizziness or lightheadedness. No other complaints. Review of Systems Review of Systems: All systems reviewed & are unremarkable except as noted in HPI and below Constitutional: Constitutional: Reports as per HPI, Reports no additional constitutional complaints and Reports fatigue Eyes: Eyes: Reports as per HPI and Reports no additional eye complaints ENT: Reports
[2021-01-11] VITALS (7 sets, daily range): BP systolic 130–150; BP diastolic 68–72; PULSE 69–130; RESP 16–18; TEMP 36.8–36.9; O2SAT 98–99
[2021-01-11] MEDS: ACETAMINOPHEN 325 MG TABLET 650 MG PO ×2 (04:56→15:52)
[2021-01-11 06:14] LABS: Anion Gap 10 mmol/L (8-16); Blood Urea Nitrogen 28 mg/dL (7-17); Carbon Dioxide 29 mmol/L (22-30); Chloride 100 mmol/L (98-107); Estimated CRCL calculation 63 ml/min; Estimated Glomerular Filt Rate 60; Glucose 169 mg/dL (65-110); Potassium 3.4 mmol/L (3.4-5.0); Sodium 139 mmol/L (137-145)
[2021-01-11] MEDS: amLODIPine BESYLATE 5 MG TABLET PO (08:46)
[2021-01-11] MEDS: ASPIRIN 81 MG ENTERIC TABLET PO (08:46)
[2021-01-11] MEDS: ATORVASTATIN 20 MG TABLET PO (08:46)
[2021-01-11] MEDS: FUROSEMIDE 40 MG TABLET PO (08:46)
[2021-01-11] MEDS: POTASSIUM CHLORIDE 20 MEQ TABLET 40 MEQ PO (08:52)
--- NOTE | 2021-01-11 09:35 | PM.PNCARD ---
Progress Note: A&P Assessment and Plan (1) Elevated troponin I level: Code(s): R77.8 - Other specified abnormalities of plasma proteins Status: Acute Assessment and Plan: Type 2 infarction in setting of renal insufficiency, uncontrolled hypertension, possible mild but without anginal symptoms and flat curve not consistent with the acute coronary syndrome and/or plaque rupture. Abnormal EKG at presentation cannot exclude underlying CAD. Echo technically difficult but preserved LV systolic function without clearly identifiable motion abnormalities or significant valve pathology. Mild LVH with grade 1 diastolic dysfunction appreciated. BP control, treatment of LUIS F, diet/lifestyle avoidance of NSAID therapy counseling performed. Losartan would be preferable for blood pressure control if she still requires. Discontinued IV hydralazine. Continue Lasix, transition to oral DVT prophylaxis Telemetry stable. Continue Aspirin 81 mg daily Outpatient Lexiscan nuclear stress test to assess for myocardial ischemia. Patient stable for discharge home from cardiac perspective per hospitalist service. (2) Congestive heart failure: Code(s): I50.9 - Heart failure, unspecified Status: Acute Assessment and Plan: Compensated. Continue Lasix 40 mg daily. Check BMP in 2 weeks as an outpatient. Add losartan 25 mg daily. Presentation suggests CHF with progressive exertional dyspnea, lower extremity edema when difficulty sleeping suggestive but not corroborated by the patient of orthopnea but within minimal elevation in BNP as well as minimal pulmonary vascular congestion on chest x-ray. Transition to oral Lasix in a.m. as tolerated. Combination of uncontrolled hypertension, untreated significant LUIS F. Counseled on risks associated with NSAID use including hypertension, CHF. She understands and agrees. -1.8L (3) Acute renal insufficiency: Code(s): N28.9 - Disorder of kidney and ureter, unspecified Status: Acute Assessment and Plan: Creatinine stable 1.2, BUN slightly elevated 27. Monitor electrolytes, supplement 20 mEq potassium chloride daily. Check electrolytes in a.m.. Renal mass workup per primary service. (4) Hypertension: Code(s): I10 - Essential (primary) hypertension Status: Acute Assessment and Plan: BP marginally controlled improved on amlodipine. Add losartan 25 mg daily given LVH. Reduce amlodipine to 2.5 mg daily. Concerned side effects with lower extremity edema may confound management. BMP as outpatient in 2 weeks. Explained these changes to the patient who verbalized understanding and agreed with plan of care. Plan to up titrate and simplify antihypertensive regimen as much as tolerated as an outpatient. She must follow-up with her PCP as well shortly after discharge. (5) LUIS F (obstructive sleep apnea): Code(s): G47.33 - Obstructive sleep apnea (adult) (pediatric) Status: Acute Assessment and Plan: Outpatient sleep study must be set up as soon as possible. I have counseled the patient in this regard. She agrees. AHI on apnea link very high at 38 suggestive of clinically significant LUIS F. We discussed this contribution to CHF, edema, fatigue, impairment in quality of life as well as greater difficulty in managing hypertension. She states she will follow-up as advised. (6) Morbid obesity with BMI of 45.0-49.9, adult: Code(s): E66.01 - Morbid (severe) obesity due to excess calories; Z68.42 - Body mass index [BMI] 45.0-49.9, adult Status: Acute Assessment and Plan: Lifestyle modification, exercise, reduction in caloric intake counseling performed. (7) Vaginal bleeding: Code(s): N93.9 - Abnormal uterine and vaginal bleeding, unspecified Status: Acute Assessment and Plan: Per primary service. Ob consult noted. Subjective Date/time seen: Date of service: 01/11/21 09:35 Follow-up for sh
[2021-01-11 09:42] LABS: Hemoglobin A1C 5.9 % (<5.7)
--- NOTE | 2021-01-11 10:36 | PM.DS ---
DS: Admitting Diagnosis Discharge Date 01/11/21 Admitting Diagnosis LE swelling, new onset HF DS: Discharge Diagnosis Discharge Diagnosis (1) Congestive heart failure: Code(s): I50.9 - Heart failure, unspecified Status: Acute Assessment and Plan: Acute diastolic CHF -troponins flat, no chest pain. No signs of ACS -echo EF 65-70%, grade 1 diastolic dysfunction -discharged on Lasix 40 mg daily with follow-up with BMP in 1 week -untreated sleep apnea is also in etiology. Her lower extremity swelling is likely multifactorial and includes untreated sleep apnea and diastolic heart failure. She plans follow-up with her primary care physician for sleep apnea study -There is no protein noted in her UA, nephropathy not suspected. Ultrasound lower extremity showed no DVTs. No signs of inferior vena cava compression on CT. (2) Elevated troponin I level: Code(s): R77.8 - Other specified abnormalities of plasma proteins Status: Acute Assessment and Plan: As above (3) Hypertension: Code(s): I10 - Essential (primary) hypertension Status: Acute Assessment and Plan: Last blood pressure 150/72 -Norvasc, Lasix, and losartan started during her hospitalization and continued at discharge -follow-up with PCP for BP management (4) Morbid obesity with BMI of 45.0-49.9, adult: Code(s): E66.01 - Morbid (severe) obesity due to excess calories; Z68.42 - Body mass index [BMI] 45.0-49.9, adult Status: Acute Assessment and Plan: Chronic, encourage healthy lifestyles (5) Vaginal bleeding: Code(s): N93.9 - Abnormal uterine and vaginal bleeding, unspecified Status: Acute Assessment and Plan: Transvaginal ultrasound shows a suspicious abnormality and she should get a biopsy outpatient. This was discussed with the patient and the patient is going to make another appointment with her OBGYN. She missed this appointment since she was hospitalized. (6) Acute renal insufficiency: Code(s): N28.9 - Disorder of kidney and ureter, unspecified Status: Acute Assessment and Plan: Creatinine slightly elevated 1.1 Could be due to untreated hypertension. Labs back in 2012 shows a normal creatinine (7) Renal mass: Code(s): N28.89 - Other specified disorders of kidney and ureter Status: Acute Assessment and Plan: Renal mass concerning for renal cell carcinoma. Urology was consulted going to follow-up with her outpatient. Patient was educated about this abnormality (8) Suspected sleep apnea: Code(s): R29.818 - Other symptoms and signs involving the nervous system Status: Acute Assessment and Plan: Will need official sleep study outpatient, could be contributing to her lower extremity edema DS: Summary Hospital Course Hospital Course: Patient is a 70-year-old female who presented emergency room on 01/08 for leg swelling and dyspnea on exertion. Chest x-ray showed pulmonary vascular redistribution suggesting pulmonary venous hypertension with congestion changes. Patient was admitted to the hospitalist service and started on IV Lasix and Cardiology was consulted. Her echo showed diastolic dysfunction but no systolic dysfunction. Her swelling improved with the Lasix and was likely multifactorial due to uncontrolled blood pressure, diastolic heart failure, and untreated sleep apnea. She had no DVTs or protein in her urine to suggest other pathology. Cardiology is going to follow up with her outpatient for possible ischemia workup as the patient did not want to do this inpatient. She also mentioned that she had been having some vaginal bleeding and transvaginal ultrasound did show some thickening which needed a biopsy. Patient has an OBGYN outpatient is going to talk to her about this. She also had a CT that showed possible renal cell carcinoma. Urology was consulted and discussed t
--- NOTE | 2021-01-11 16:06 | WPDURCON ---
Assessment and Plan Assessment and plan (1) Renal mass: Code(s): N28.89 - Other specified disorders of kidney and ureter Status: Acute Assessment and Plan: Bilateral present on CT 01/11/2021 3.9cm mass right and 1cm left, will plan to set up an outpatient visit with Dr. Brennan Nobles to discuss and evaluate further. We discussed the possibility that this may be renal cell carcinoma. (2) Gross hematuria: Code(s): R31.0 - Gross hematuria Status: Acute Assessment and Plan: x1 week Urology Consult Note HPI Date Seen: 01/11/21 Requesting Physician: Cindy Rain PA-C Primary Care Provider: CHALINO ESCAMILLA Consult Narrative Narrative: Roxanne Garcia is a 70 year old female who presented to the ER on 01/08/2021 for a CHF exacerbation. She was admitted and monitored. She has a WBC of 8.6 and a creatinine of 1.10 currently. A CHRISTI was done on 01/10/2021 as a result of an abnormal incidental finding on CT without contrast from 01/10/2021 showing bilateral renal lesions. The CHRISTI was indeterminate as to a cyst or lesion. A CT was then repeated today with contrast and confirmed a right renal mass measuring 3.9cm likely renal cell carcinoma and a 1cm left renal mass probable for renal cell carcinoma. The patient had vaginal bleeding post menopausal and looks to have endometrial thickening as well. She states that she had new onset of gross hematuria last week at home with urination which has been intermittent. She denies dysuria,frequency, urgency, flank pain or recurrent UTI's. Review of Systems Respiratory: Respiratory: Reports no additional respiratory complaints Gastrointestinal: Gastrointestinal: Denies abdominal pain, Denies nausea and Denies vomiting Genitourinary: Genitourinary: Reports hematuria, Denies dysuria, Denies flank pain, Denies urinary incontinence, Denies urinary hesitancy and Denies urinary urgency [facility] Past Medical History Medical History Hypertension Morbid obesity with BMI of 45.0-49.9, adult Family History Family History Other Family history of heart disease in male family member before age 55 Social History Social History Smoking status: Never smoker Alcohol intake: never Substance use: never Spiritual care concerns: No Meds Home Medications and Allergies Home Medications Medication Instructions Recorded Confirmed Type No Home Medications 01/09/21 01/09/21 History Allergies Allergy/AdvReac Type Severity Reaction Status Date / Time No Known Allergies Allergy Unverified 04/21/16 18:37 Vital Signs Vital Signs - 24 hr 01/10/21 20:00 01/11/21 00:00 01/11/21 04:00 Temperature 98.1 F Pulse Rate 71 89 69 Respiratory Rate 20 Blood Pressure 137/75 Pulse Oximetry 100 01/11/21 05:53 01/11/21 08:00 01/11/21 11:20 Temperature 98.2 F Pulse Rate 91 91 130 H Respiratory Rate 16 16 Blood Pressure 130/68 Pulse Oximetry 99 99 01/11/21 13:18 01/11/21 15:13 Temperature 98.4 F Pulse Rate 93 88 Respiratory Rate 18 Blood Pressure 150/72 H Pulse Oximetry 98 Exam Resp: Effort & Inspection: normal respiratory effort Cardio: Rate: regular rate GI: GI Palp: Yes Soft to palpation and No Tenderness to palpation present (GI) : General: Yes no CVA tenderness Extrem: General: edema bilateral Results Labs CBC & Chem 7: 01/10/21 06:08 01/11/21 05:43 Labs: BMP 01/11/21 05:43 Sodium 139 Potassium 3.4 Chloride 100 Carbon Dioxide 29 BUN 28 H Creatinine 1.10 H Glucose 169 H Calcium 9.0 Quality VTE Prophylaxis VTE prophylaxis: mechanical ordered
== END 2021-01-11 17:29 | disposition home or self-care (01) | DRG 280 ==
LOC: ANHED 19:52 → ANHIMU 01-09 00:02 → ANHCPC 01-10 14:18 → ANHIMU 01-13 13:12
PROVIDERS: Internal Medicine Cardiovascular Disease; Physician Assistant; Admitting Provider Internal Medicine; Emergency Provider Emergency Medicine; Visit Provider Family Medicine
DX: I11.0 Hypertensive heart disease with heart failure (principal); I21.A1 Myocardial infarction type 2; I50.31 Acute diastolic (congestive) heart failure; Z68.42 Body mass index [BMI] 45.0-49.9, adult; G47.33 Obstructive sleep apnea (adult) (pediatric); N28.9 Disorder of kidney and ureter, unspecified; R31.0 Gross hematuria; N93.9 Abnormal uterine and vaginal bleeding, unspecified; E66.01 Morbid (severe) obesity due to excess calories; E87.6 Hypokalemia
CPT/HCPCS: 36415; 71046; 74176; 74177; 76775; 76830; 76856; 80048; 80061; 80076; 81001; 83036; 83735; 83880; 84132; 84443; 84484; 85025; 85027; 85610; 85730; 86850; 86900; 86901; 93005; 93306; 93970; 94762; 96374; 96376; 99285; A9270; G0378; J0360; J1940; Q9967

== ENCOUNTER 2021-06-21 13:09 | Outpatient (CLI) | payer MEDICARE, MEDICAID, SELFPAY ==
[2021-06-21 14:23] LABS: Anion Gap 6 mmol/L (8-16); Blood Urea Nitrogen 12 mg/dL (7-17); Calcium 8.9 mg/dL (8.4-10.2); Carbon Dioxide 30 mmol/L (22-30); Chloride 101 mmol/L (98-107); Estimated Glomerular Filt Rate > 60; Glucose 106 mg/dL (65-110); Potassium 3.8 mmol/L (3.4-5.0); Sodium 137 mmol/L (137-145)
[2021-06-21 14:25] LABS: INR 1.2; Prothrombin Time 14.8 Seconds (11.1-14.7)
[2021-06-21 14:26] LABS: Partial Thromboplastin Time 29.8 SECONDS (22.3-36.8)
== END 2021-06-21 13:10 | disposition home or self-care (01) ==
LOC: ANHSURGERY 13:15
PROVIDERS: Anesthesiology; Visit Provider Obstetrics & Gynecology
DX: Z01.818 Encounter for other preprocedural examination (principal); N28.9 Disorder of kidney and ureter, unspecified
CPT/HCPCS: 36415; 80048; 85610; 85730

== ENCOUNTER 2021-06-26 00:32 | Day surgery (SDC) | payer MEDICARE, MEDICAID, SELFPAY ==
[2021-06-15 12:25] VITALS: BMI 45.0
--- NOTE | 2021-06-15 12:42 | PC.NURSE ---
Report to the Outpatient Waiting Room, entrance under the green pavilion located off [facility], at time _1130 AM_ on date _06/26/21_. OR Time: _1:30 PM_. - You and your visitor will be asked a series of questions to screen for COVID 19 for your protection. - A mask is required within the hospital. Preoperative COVID Testing Requirements: NONE Patients may have clear liquids (water, carbonated beverages, clear teas, apple juice) until 3 hours prior to surgery (1030 AM) with a maximum of 20 ounces. - No food from midnight until time of surgery Take the following medications with a SIP of water the morning of surgery: _AMLODIPINE__ Medications to discontinue per DR. RODRIGUEZ - _ASPIRIN - CALL OFFICE FOR INSTRUCTIONS_ Please no make-up, nail german, hairspray, perfume, deodorant, or body powder the day of surgery. No jewelry (including any body piercings) or valuables the day of surgery, leave them at home. Please take a shower or bath the night before, or the morning of, surgery with an antibacterial soap. Wear comfortable, loose fitting clothing. - Jewelry must be removed prior to entering the operating room. Rings and piercings that are not removed may be cut off. - The hospital will not accept responsibility for valuables. - Please leave all valuables, including medications, at home the day of surgery. If you are going home after surgery, a licensed over the road driver must drive you home. - NO public transportation without another adult. - We recommend that an adult stay with you for 24 hours following discharge. - We also recommend that you do not drive, make important decision, drink alcoholic beverages, or take any drugs that were not prescribed by your health care provider for at least 24 hours after your discharge time. One visitor will be allowed to accompany the patient into the hospital. Patients visitor will be instructed to remain with patient at all times or leave the building. We will allow the visitor to come back to the postoperative area when patient is ready. Follow any additional instructions given to you from your surgeon. Telephone instructions given to ____PT and asked if any additional questions and then verbalized understanding. Patient advised to call surgeon office or pre surgery nurse liaisonLAURA [phone] if any additional questions.
--- NOTE | 2021-06-22 12:21 | P.HP_ITS ---
H&P: HPI History of Present Illness Date/Time: 06/22/21 12:21 She had bleeding in fall 2019 then again for 1-2 d ays 12/2020 then from 02/05-02/18/21 then none since. Endometrium thickened on ultrasound. Chief Complaint: Postmenopausal bleeding Review of Systems Review of Systems: All systems reviewed & are unremarkable except as noted in HPI and below PMFSH Past Medical History Medical History Edema Hypertension Missed x2 Morbid obesity with BMI of 45.0-49.9, adult Vaginal delivery x1 Surgical History Surgical History Previous section x1 Family History Family History Father Stomach cancer Hypertension Mother Alcoholism Cervical cancer Hypertension Sibling Alcoholism brother Grandparent Diabetes mellitus Hypertension Other Heart disease aunt Cerebrovascular accident aunt Other Family history of heart disease in male family member before age 55 Social History Social History Smoking status: Never smoker Second hand tobacco smoke exposure: No Alcohol intake: current Alcohol use details: STATES VERY RARELY 1-3 TIMES A YEAR Substance use: never Substance use type: does not use Additional living arrangements comments: 17YR OLD GRANDDAUGHTER LIVES WITH PT Spiritual care concerns: No Agree to blood products: Yes Meds Home Medications and Allergies Home Medications Medication Instructions Recorded Confirmed Type amlodipine 2.5 mg PO QAM #30 tablet 01/11/21 06/15/21 Rx aspirin 81 mg PO QAM #30 tablet 01/11/21 06/15/21 Rx furosemide 40 mg PO DAILY #30 tablet 01/11/21 06/15/21 Rx atorvastatin 20 mg PO QAM 06/15/21 06/15/21 History losartan 25 mg PO QAM 06/15/21 06/15/21 History potassium chloride 10 meq PO QAM 06/15/21 06/15/21 History triamterene-hydrochlorothiazid 1 tablet QAM 06/15/21 06/15/21 History Allergies Allergy/AdvReac Type Severity Reaction Status Date / Time No Known Allergies Allergy Verified 02/24/22 12:17 Exam Const: General: healthy appearing, no acute distress, alert and awake Resp: Auscultation: clear to auscultation bilaterally Cardio: Rate: regular rate Rhythm: regular rhythm GI: Inspection: non-distended GI Palp: Yes Soft to palpation and No Tenderness to palpation present (GI) : Bimanual exam- vagina & uterus: normal bimanual exam, uterine size normal, uterine mobility normal and non-tender Bimanual Exam- Adnexa, other: normal adnexae, no masses and No adnexal tenderness Extrem: General: no pedal edema and no calf tenderness Psych: Mental Status: mental status grossly normal Assessment and Plan Assessment and plan (1) Postmenopausal bleeding: Code(s): N95.0 - Postmenopausal bleeding Status: Acute Assessment and Plan: She signed consent after risks, complications, and alternatives discussed for D&C / hysteroscopy. She expressed understanding and agrees to proceed
--- NOTE | 2021-06-26 11:42 | WPDANESEPPF ---
Anes - Initial Pre Proc Eval Procedure: Operation Date: 06/26/21 13:30 Proposed Procedures p Hysteroscopy with Dilation and Curettage - Brianna Perdomo MD Date/Time: 06/26/21 11:42 Surgeon: Brianna Perdomo MD Pre Op Diagnosis: POST MENOPAUSAL BLEEDING Patient Data Age: 70 Gender: F Height: 1.7 m Weight: 130.45 kg Allergies Allergy/AdvReac Type Severity Reaction Status Date / Time No Known Allergies Allergy Verified 06/15/21 12:17 Home Medications Medication Instructions Recorded Confirmed Type amlodipine 2.5 mg PO QAM #30 tablet 01/11/21 06/15/21 Rx aspirin 81 mg PO QAM #30 tablet 01/11/21 06/15/21 Rx furosemide 40 mg PO DAILY #30 tablet 01/11/21 06/15/21 Rx atorvastatin 20 mg PO QAM 06/15/21 06/15/21 History losartan 25 mg PO QAM 06/15/21 06/15/21 History potassium chloride 10 meq PO QAM 06/15/21 06/15/21 History triamterene-hydrochlorothiazid 1 tablet QAM 06/15/21 06/15/21 History hydrocodone-acetaminophen 1 tablet PO Q4H PRN #10 tablet 06/26/21 Rx ibuprofen 600 mg PO Q6H PRN #60 tablet 06/26/21 Rx Patient hx anesthesia problems: none Family hx anesthesia problems: none Results Review: All pre-operative results and documents have been reviewed as part of the pre-operative evaluation. [facility] Past Medical History Medical History (Updated 06/26/21 @ 12:30 by Brianna Perdomo MD) Edema Hyperlipidemia Hypertension Missed x2 Morbid obesity with BMI of 45.0-49.9, adult LUIS F (obstructive sleep apnea) Renal mass Vaginal delivery x1 Surgical History Surgical History Previous section x1 Family History Family History Father Stomach cancer Hypertension Mother Alcoholism Cervical cancer Hypertension Sibling Alcoholism brother Grandparent Diabetes mellitus Hypertension Other Heart disease aunt Cerebrovascular accident aunt Other Family history of heart disease in male family member before age 55 Social History Social History (Reviewed 06/14/21 @ 15:12 by EUGENE Dorantes Smoking status: Never smoker Second hand tobacco smoke exposure: No Alcohol intake: current Alcohol use details: STATES VERY RARELY 1-3 TIMES A YEAR Substance use: never Substance use type: does not use Living arrangements: with family Additional living arrangements comments: 17YR OLD GRANDDAUGHTER LIVES WITH PT Spiritual care concerns: No Agree to blood products: Yes Anes - Eval Final PreProcedure Day of Procedure 06/26/21 11:42 Patient weight: morbidly obese Heart: regular rate and rhythm Lungs: clear to auscultation and normal air movement Airway: Mallampati scale class II Neurological: alert and oriented Last oral intake: >/= 8 hours ASA classification: III Emergent: no Anesthetic plan: proceed Anesthesia type and monitoring: general GIVS and standard monitoring Results Review: All pre-operative results and documents have been reviewed as part of the pre-operative evaluation. Informed Consent: The patient's anesthetic plan and its attendant risks and benefits were discussed with the patient/family/POA. Questions were solicited and answers provided to the satisfaction of the patient/family/POA.
--- NOTE | 2021-06-26 11:53 | WPDHPUPDATE1 ---
History and Physical Update Update Date/Time: 06/26/21 11:53 History and Physical has been reviewed, including an updated exam of the patient. There are NO changes in the patient's condition. Risks, benefits, and alternatives have been discussed and questions answered. Patient agrees to proceed with procedure.
[2021-06-26] MEDS: ACETAMINOPHEN 500 MG TABLET 1000 MG PO (12:29)
--- NOTE | 2021-06-26 12:31 | W.PM.PROC2 ---
Procedure Note - Detailed Date of Procedure 06/26/21 Pre-op Diagnosis POST MENOPAUSAL BLEEDING Post-op Diagnosis Other (postmenopausal bleeding, endometrial polyps) Procedure Performed D&C, hysteroscopy, polypectomy using MyoSure Surgeon Brianna Perdomo MD Anesthesia MAC Indications postmenopausal bleeding Findings large endometrial polyps, otherwise normal endometrial cavity Description of Procedure She was taken to the operating room where she was sedated and placed in the dorsal lithotomy position. A speculum was placed in the vagina. The anterior lip of the cervix was grasped with a single-tooth tenaculum. The uterus sounded to 9 cm. The cervix was dilated to allow passage of the hysteroscope, which revealed several large polypoid lesions in the endometrial cavity. The regular hysteroscope was converted to the MyoSure scope. The MyoSure device was then used under hysteroscopic guidance to remove the polyps. At the end of the polypectomy, the endometrial cavity looked completely clear and normal. The hysteroscope was removed. The tenaculum was removed. The right tenaculum site was bleeding slightly. Pressure was held with ring forceps until excellent hemostasis was assured. All instruments were then removed from the vagina. She tolerated procedure well. Sponge, lap, and instrument counts were correct x2. She was taken to the recovery room in stable condition. Estimated Blood Loss 10 Drains No Packing No Pathology Yes Complications No immediate complications Condition Stable Disposition PACU
[2021-06-26 12:44] VITALS: BP 166/99; PULSE 111; RESP 18; TEMP 36.3; O2SAT 99
[2021-06-26] MEDS: LACTATED RINGERS 1,000 ML 30 ML IV CONT (12:50)
[2021-06-26 13:26] VITALS: BP 167/83; PULSE 100; RESP 12; O2SAT 95
[2021-06-26 13:56] VITALS: BP 169/84; PULSE 98; RESP 12
[2021-06-26 14:26] VITALS: BP 181/88; PULSE 89; RESP 12
[2021-06-26 14:56] VITALS: BP 179/80; PULSE 89; RESP 12
== END 2021-06-26 15:20 | disposition home or self-care (01) ==
PROVIDERS: Visit Provider Obstetrics & Gynecology
PROC: 0U5B8ZZ Destruction of Endometrium, Via Natural or Artificial Opening Endoscopic (ICD-10-PCS; CPT 58563; principal; 2021-06-26 13:30)
DX: C54.1 Malignant neoplasm of endometrium (principal); N95.0 Postmenopausal bleeding; N84.0 Polyp of corpus uteri; Z79.82 Long term (current) use of aspirin; E78.5 Hyperlipidemia, unspecified; I10 Essential (primary) hypertension; G47.33 Obstructive sleep apnea (adult) (pediatric); N28.89 Other specified disorders of kidney and ureter; E66.01 Morbid (severe) obesity due to excess calories; Z68.41 Body mass index [BMI] 40.0-44.9, adult
CPT/HCPCS: 58558; 36415; 80048; 85610; 85730; 88305; A9270; J2704; J3010; J7120

== ENCOUNTER 2021-11-25 14:27 | Emergency (ER) | payer MEDICARE, MEDICAID, SELFPAY ==
[2021-11-25] VITALS (14 sets, daily range): BP systolic 79–119; BP diastolic 55–81; PULSE 76–118; RESP 18–20; TEMP 36.2–36.8; O2SAT 96–100
--- NOTE | ~2021-11-25 | CT_ITS ---
EXAMINATION: CT abdomen pelvis wo con DATE: 11/25/2021 16:56 INDICATION: abd pain, obstruction TECHNIQUE: Computed tomography (CT) of the abdomen and pelvis was performed without intravenous contr ast. Automated exposure control and iterative reconstruction technique were employed. The dose-length product was 1504.87 mGy-cm. COMPARISON: 01/11/2021. FINDINGS: Lower thorax: Subsegmental consolidation in the left lung base. Small left pleural effusion. Coronary artery calcifications Liver: 14 mm exophytic right liver lobe lesion, may represent a liver cyst, other liver lesion, or ad jacent lymph node. Biliary/Gallbladder: Cholelithiasis. No bile duct dilation. Pancreas: No mass or duct dilation. Spleen: Normal. Adrenals:No mass. Kidneys: Approximately 4 cm indeterminate density right midpole mass, difficult to accurately measure without contrast. Approximately 1 cm exophytic isodense left midpole mass. Right pelviectasis. GI tract: No small or large bowel dilation. Appendix not visualized. Diverticulosis without diverticu litis. Mesentery/Peritoneum: Extensive abdominopelvic lymphadenopathy, forming conglomerate masses in the mi d/lower abdomen and pelvis with subdiaphragmatic lymphadenopathy and bilateral inguinal adenopathy. Retroperitoneum: Lymphadenopathy as described above. Pelvis: Bladder is decompressed. Uterus difficult to visualize without contrast and adjacent lymphade nopathy. Soft Tissues: Multifocal subcutaneous hyperdensities in the anterior lower abdomen. Ventral abdominal wall hernia containing a small portion of large bowel wall, without complication. Bones: No acute osseous finding. IMPRESSION: Redemonstration of suspicious bilateral renal masses. Extensive abdominopelvic lymphadenopathy. Congl omerate masses of lymph nodes may be causing obstruction of the IVC and/or pelvic veins, given the pr ior ultrasound findings of extensive lower extremity DVT, as well as early/mild right proximal ureter al obstruction. Subcutaneous lower abdominal wall injection granuloma/hematomas versus venous collate ral formation. Left basilar atelectasis/consolidation with small pleural effusion. Reviewed, dictated and finalized at location K. IMPRESSION: Redemonstration of suspicious bilateral renal masses. Extensive abdominopelvic lymphadenopathy. Conglomerate masses of lymph nodes may be causing obstruction of the IVC and/or pelvic veins, given the prior ultrasound findings of extensiv e lower extremity DVT, as well as early/mild right proximal ureteral obstructio n. Subcutaneous lower abdominal wall injection granuloma/hematomas versus venou s collateral formation. Left basilar atelectasis/consolidation with small pleur al effusion.
--- NOTE | ~2021-11-25 | US_ITS ---
EXAMINATION: US venous doppler [facility] DATE: 11/25/2021 16:21 INDICATION: left leg swelling . TECHNIQUE: Grayscale images without and with compression and Doppler images of the left lower extremi ty veins were obtained. COMPARISON: None FINDINGS: The left common femoral vein, profunda femoral vein, femoral vein, popliteal vein, peroneal vein, pos terior tibial veins, gastrocnemius vein, and greater saphenous vein are noncompressible and contains echogenic intraluminal material, with abnormal flow. IMPRESSION: 1. Extensive left lower extremity deep venous thrombosis involving all imaged veins. Results reported telephonically to Dr. Powell by Dr. Mo at 4:41 PM on 11/25/2021. Reviewed, dictated and finalized at location K. IMPRESSION: 1. Extensive left lower extremity deep venous thrombosis involving all imaged veins. Results reported telephonically to Dr. Powell by Dr. Mo at 4:41 PM on 11/26/19 22.
--- NOTE | ~2021-11-25 | XR_ITS ---
XR chest 1V portable DATE: 11/25/2021 16:00 INDICATION: Sepsis. Left lower extremity swelling. TECHNIQUE: Portable upright AP chest on 11/25/2021 at 1549 hours COMPARISON: 01/08/2021 AP and lateral chest FINDINGS: Heart size appears within normal range considering magnification associated with AP project ion. There is pulmonary vascular redistribution suggesting pulmonary venous hypertension. Mild infiltrate or atelectasis is suggested in the left mid and both lower lung zones, left greater t perdomo right. Mild blunting of the left costophrenic angle, suggesting small pleural effusion. No pneumo thorax. Bilateral glenohumeral osteoarthritis. Osteopenia. Scoliosis and degenerative spurring of the thoraci c spine. IMPRESSION: Mild infiltrate or atelectasis in left mid and both lower lung zones, left greater than r ight and suggestion of small left pleural effusion Pulmonary vascular redistribution, suggesting mild pulmonary venous hypertension. Reviewed, dictated and finalized at location A. IMPRESSION: Mild infiltrate or atelectasis in left mid and both lower lung zone s, left greater than right and suggestion of small left pleural effusion Pulmonary vascular redistribution, suggesting mild pulmonary venous hypertensio n.
--- NOTE | 2021-11-25 15:28 | ECG_ITS ---
Measurements Intervals [place] Rate: 81 P: 60 CT: 145 QRS: 50 QRSD: 90 T: 50 QT: 361 QTc: 420 Interpretive Statements SINUS RHYTHM WITH SINUS ARRHYTHMIA OTHERWISE NORMAL ECG COMPARED TO ECG 01/09/2021 13:55:52 NO SIGNIFICANT CHANGE Electronically Signed On 11-26-2021 8:21:26 CDT by Reid De Anda M.D.
[2021-11-25 15:57] LABS: Basophils Percent Auto 0.3 % (0.2-1.2); Eosinophils Percent Auto 0.4 % (0-4.4); Hematocrit 35.2 % (37.0-47.0); Hemoglobin 10.7 g/dL (12.0-15.0); Immature Granulocyte Percent A 1.8 % (0-0.5); Lymphocytes Absolute Auto 1.63 K/mm3 (0.9-3.2); Lymphocytes Percent Auto 14.4 % (18.3-44.2); Mean Corpuscular HGB Conc 30.4 g/dl (32-36); Mean Corpuscular Hemoglobin 27.5 pg (26-34); Mean Corpuscular Volume 90.5 fl (80-100); Mean Platelet Volume 11.4 fl (7.4-10.4); Monocytes Absolute Auto 0.7 K/mm3 (0.1-0.6); Monocytes Percent Auto 5.7 % (2.6-8.5); Neutrophils Absolute Auto 8.8 K/mm3 (1.3-6.7); Neutrophils Percent Auto 77.4 % (45.5-73.1); Nucleated Red Blood Cells Absolute Auto 0.1 K/mm3 (0.0-0.012); Nucleated Red Blood Cells Perc 0.4 % (0.0-0.2); Platelet Count Result 222 k/mm3 (150-375); Red Blood Count 3.89 M/mm3 (4.2-5.4); Red Cell Distribution Width 17.9 % (11.5-14.5); White Blood Count 11.3 K/mm3 (4.5-10.0)
[2021-11-25 16:05] LABS: Lactic Acid Reflex 3.9 mmol/L (0.7-2.0)
[2021-11-25 16:09] LABS: INR 1.4
[2021-11-25 16:10] LABS: Alanine Aminotransferase 18 U/L (6-35); Albumin Level 3.7 g/dL (3.5-5.1); Alkaline Phosphatase 120 U/L (38-126); Anion Gap 15 mmol/L (8-16); Aspartate Amino Transferase 110 U/L (14-36); Bilirubin,Total 1.2 mg/dL (0.2-1.3); Blood Urea Nitrogen 49 mg/dL (7-17); CRP 8.3 mg/dL (<1.0); Calcium 9.5 mg/dL (8.4-10.2); Carbon Dioxide 22 mmol/L (22-30); Chloride 96 mmol/L (98-107); Estimated CRCL calculation 18 ml/min; Estimated Glomerular Filt Rate 16; Glucose 126 mg/dL (65-110); Partial Thromboplastin Time 30.6 SECONDS (22.3-36.8); Potassium 4.7 mmol/L (3.4-5.0); Sodium 133 mmol/L (137-145)
[2021-11-25 16:45] LABS: D Dimer 14.59 ug/mL (<0.48)
[2021-11-25 17:11] LABS: SARS-CoV-2 RNA PCR Negative
[2021-11-25] MEDS: HEPARIN SOD/D5W 100 UNITS/ML 25,000 UNITS/250 ML BAG 15 UNITS IV CONT (17:34)
[2021-11-25] MEDS: HEPARIN SODIUM 5,000 UNITS/ML VIAL 6500 UNITS IV PUSH (17:35)
--- NOTE | 2021-11-25 18:13 | ED.GENADULT ---
HPI - General Adult General Chief complaint: Unspecified Stated complaint: constipation since surgery 1 month ago Time Seen by Provider: 11/25/21 15:22 History of Present Illness HPI narrative: 71-year-old female who had hysterectomy for uterine cancer 2 months ago presents here because she is endorsing some abdominal discomfort and constipation, she states that she feels nauseous often and cannot tolerate anything p.o. and has been quite dehydrated, over the last week she has also had increased swelling and pain to her left lower extremity. Related Data Home Medications Medication Instructions Recorded Confirmed atorvastatin 20 mg tablet 20 mg PO QAM 06/15/21 06/15/21 losartan 25 mg tablet 25 mg PO QAM 06/15/21 06/15/21 potassium chloride 10 mEq 10 meq PO QAM 06/15/21 06/15/21 tablet,extended release triamterene 37.5 1 tablet QAM 06/15/21 06/15/21 mg-hydrochlorothiazide 25 mg tablet Allergies Allergy/AdvReac Type Severity Reaction Status Date / Time No Known Allergies Allergy Verified 06/15/21 12:17 [facility] Past Medical History Medical History (Updated 11/25/21 @ 18:43 by Shanti Powell MD) Edema Endometrial cancer 06/26/2021 Hyperlipidemia Hypertension Missed x2 Morbid obesity with BMI of 45.0-49.9, adult LUIS F (obstructive sleep apnea) Renal mass Vaginal delivery x1 Surgical History Surgical History Previous section x1 Family History Family History Father Stomach cancer Hypertension Mother Alcoholism Cervical cancer Hypertension Sibling Alcoholism brother Grandparent Diabetes mellitus Hypertension Other Heart disease aunt Cerebrovascular accident aunt Other Family history of heart disease in male family member before age 55 Social History Social History Smoking status: Never smoker Second hand tobacco smoke exposure: No Alcohol intake: current Alcohol use details: STATES VERY RARELY 1-3 TIMES A YEAR Substance use: never Substance use type: does not use Additional living arrangements comments: 17YR OLD GRANDDAUGHTER LIVES WITH PT Spiritual care concerns: No Agree to blood products: Yes Course Vital Signs Vital signs: Vital Signs Temperature 97.1 F L 11/25/21 14:32 Pulse Rate 118 H 11/25/21 14:32 Respiratory Rate 18 11/25/21 14:32 Blood Pressure 91/57 L 11/25/21 14:32 Pulse Oximetry 96 11/25/21 14:32 Oxygen Delivery Room Air 11/25/21 14:32 Temperature 97.1 F L 11/25/21 14:32 Pulse Rate 80 11/25/21 17:00 Respiratory Rate 18 11/25/21 17:00 Blood Pressure 111/74 11/25/21 17:00 Pulse Oximetry 100 11/25/21 17:00 Oxygen Delivery Room Air 11/25/21 14:32 Medical Decision Making MDM Narrative Medical decision making narrative: 71yoF p/w LLE swelling and constipation/abd pain, VS very hypotensive, exam shows LLE swelling, she is immediately placed on monitors and IV placed, IVF started fr resus and labs incl cultures obtained. 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 Started on heparin gtt. All vitals improved and she is stable after IVF. D/w her surgical/hem/onc team at [facility], Dr. Melendez accepts patient. Discussed with our hospitalist in case she needs a bed while waiting for transfer. Vital Signs Vital Signs: Vital Signs Temperature 97.1 F L 11/25/21 14:32 Pulse Rate 118 H 11/25/21 14:32 Respiratory Rate 18 11/25/21 14:32 Blood Pressure 91/57 L 11/25/21 14:32 Pulse Oximetry 96 11/25/21 14:32 Oxygen Delivery Room Air 11/25/21 14:32 Temperature 97.1 F L 11/25/21 14:32 Pulse Rate 80 11/25/21 17:00 Respiratory Rate 18 11/25/21 17:00 Blood Pressure 111/74 11/25/21 17:00 Pulse Oximetry 100 11/25/21 17:00 Oxyge
[2021-11-25 18:18] LABS: Appearance Urine Clear (Clear); Bilirubin Urine 2+ (Negative); Blood Urine 2+ (Negative); Color Urine Yellow (Yellow); Glucose Urine UA Negative (Negative); Ketones Urine Trace mg/dL (Negative); Leukocyte Esterase Ur 2+ LEU/UL (Negative); Nitrate Urine Negative (Negative); Protein Urine 1+ mg/dL (Negative); Specific Grav Ur >= 1.030 (1.001-1.035); Urobilinogen Urine 0.2 mg/dL (<2.0); pH Urine 5.5 (5.0-9.0)
[2021-11-25 18:23] LABS: Bacteria Urine Trace /hpf; Hyaline Casts Urine 30-49 /lpf; Mucus Urine Rare /lpf; Squamous Epithelial Cell Urine Few /hpf (Few); WBC Urine >75 /hpf
[2021-11-25 18:24] LABS: Add Urine Microscopic? YES
[2021-11-25 18:53] LABS: Reflex Lactic Acid Yes or No Add Lactic
--- NOTE | 2021-11-25 19:31 | PC.NURSE ---
Called [facility] to obtain an estimated length of time we will be waiting for bed availability. Spoke to Kevan, they could not give that information at this time, will call if/when information/bed becomes available.
--- NOTE | 2021-11-25 21:42 | PC.NURSE ---
attempted to call report to receiving hospital. was told nurses are too busy to take report
--- NOTE | 2021-11-25 22:24 | ED.GENADULT ---
HPI - General Adult General Chief complaint: Unspecified Stated complaint: constipation since surgery 1 month ago Time Seen by Provider: 11/25/21 15:22 Related Data Home Medications Medication Instructions Recorded Confirmed atorvastatin 20 mg tablet 20 mg PO QAM 06/15/21 06/15/21 losartan 25 mg tablet 25 mg PO QAM 06/15/21 06/15/21 potassium chloride 10 mEq 10 meq PO QAM 06/15/21 06/15/21 tablet,extended release triamterene 37.5 1 tablet QAM 06/15/21 06/15/21 mg-hydrochlorothiazide 25 mg tablet Allergies Allergy/AdvReac Type Severity Reaction Status Date / Time No Known Allergies Allergy Verified 06/15/21 12:17 [facility] Past Medical History Medical History (Updated 11/25/21 @ 18:43 by Shanti Powell MD) Edema Endometrial cancer 06/26/2021 Hyperlipidemia Hypertension Missed x2 Morbid obesity with BMI of 45.0-49.9, adult LUIS F (obstructive sleep apnea) Renal mass Vaginal delivery x1 Surgical History Surgical History Previous section x1 Family History Family History Father Stomach cancer Hypertension Mother Alcoholism Cervical cancer Hypertension Sibling Alcoholism brother Grandparent Diabetes mellitus Hypertension Other Heart disease aunt Cerebrovascular accident aunt Other Family history of heart disease in male family member before age 55 Social History Social History Smoking status: Never smoker Second hand tobacco smoke exposure: No Alcohol intake: current Alcohol use details: STATES VERY RARELY 1-3 TIMES A YEAR Substance use: never Substance use type: does not use Additional living arrangements comments: 17YR OLD GRANDDAUGHTER LIVES WITH PT Spiritual care concerns: No Agree to blood products: Yes Course Course Emergency Course: Patient was signed out to me pending transfer to [facility]. The patient has been stable throughout my shift. She has had no changes in her condition. At 10:24 a.m. EMS arrived to transfer the patient to the outside hospital. Vital Signs Vital signs: Vital Signs Temperature 97.1 F L 11/25/21 14:32 Pulse Rate 118 H 11/25/21 14:32 Respiratory Rate 18 11/25/21 14:32 Blood Pressure 91/57 L 11/25/21 14:32 Pulse Oximetry 96 11/25/21 14:32 Oxygen Delivery Room Air 11/25/21 14:32 Temperature 98.2 F 11/25/21 18:15 Pulse Rate 78 11/25/21 21:23 Respiratory Rate 20 11/25/21 21:23 Blood Pressure 103/63 11/25/21 21:23 Pulse Oximetry 99 11/25/21 21:23 Oxygen Delivery Room Air 11/25/21 14:32 Medical Decision Making Vital Signs Vital Signs: Vital Signs Temperature 97.1 F L 11/25/21 14:32 Pulse Rate 118 H 11/25/21 14:32 Respiratory Rate 18 11/25/21 14:32 Blood Pressure 91/57 L 11/25/21 14:32 Pulse Oximetry 96 11/25/21 14:32 Oxygen Delivery Room Air 11/25/21 14:32 Temperature 98.2 F 11/25/21 18:15 Pulse Rate 78 11/25/21 21:23 Respiratory Rate 20 11/25/21 21:23 Blood Pressure 103/63 11/25/21 21:23 Pulse Oximetry 99 11/25/21 21:23 Oxygen Delivery Room Air 11/25/21 14:32 Lab Data Result diagrams: 11/25/21 15:45 11/25/21 15:45 Labs: Lab Results 11/25/21 11/25/21 11/25/21 Range/Units 15:45 15:45 15:45 WBC 11.3 H (4.5-10.0) K/mm3 RBC 3.89 L (4.2-5.4) M/mm3 Hgb 10.7 L (12.0-15.0) g/dL Hct 35.2 L (37.0-47.0) % MCV 90.5 (80-100) fl MCH 27.5 (26-34) pg MCHC 30.4 L (32-36) g/dl RDW 17.9 H (11.5-14.5) % Plt Count 222 (150-375) k/mm3 MPV 11.4 H (7.4-10.4) fl Immature Gran % (Auto) 1.8 H (0-0.5) % Neut % (Auto) 77.4 H (45.5-73.1) % Lymph % (Auto) 14.4 L (18.3-44.2) % [place] % (Auto) 5.7 (2.6-8.5) % Eos % (Auto) 0.4 (0-4.4)
== END 2021-11-25 22:16 | disposition short-term general hospital (02) ==
PROVIDERS: Emergency Medicine; Emergency Provider Emergency Medicine
DX: I82.412 Acute embolism and thrombosis of left femoral vein (principal); I82.432 Acute embolism and thrombosis of left popliteal vein; I82.452 Acute embolism and thrombosis of left peroneal vein; I82.442 Acute embolism and thrombosis of left tibial vein; I82.462 Acute embolism and thrombosis of left calf muscular vein; I87.1 Compression of vein; C55 Malignant neoplasm of uterus, part unspecified; K59.00 Constipation, unspecified; Z20.822 Contact with and (suspected) exposure to COVID-19; Z98.890 Other specified postprocedural states; E78.5 Hyperlipidemia, unspecified; I10 Essential (primary) hypertension; E66.01 Morbid (severe) obesity due to excess calories; Z68.41 Body mass index [BMI] 40.0-44.9, adult; N28.89 Other specified disorders of kidney and ureter; N20.0 Calculus of kidney; R91.8 Other nonspecific abnormal finding of lung field
CPT/HCPCS: 36415; 51701; 71045; 74176; 80053; 81001; 83605; 85025; 85380; 85610; 85730; 86140; 87040; 87086; 93005; 93971; 96361; 96365; 96366; 99285; C9803; J1644; J7120; U0003; U0005